=== PATIENT | female | born 1970 | race Caucasian/White ===

== ENCOUNTER → 2017-05-07 | Outpatient (CLI) | payer BC | END | disposition home or self-care (01) | LOC: CFH 11:10 | PROVIDERS: ATTEND Nurse Practitioner Family | DX: N64.4 Mastodynia (principal) | CPT/HCPCS: 76641; G0204 ==

== ENCOUNTER → 2017-06-18 | Outpatient (CLI) | payer MEDICAID ==
[~2017-06-18] MED LIST: LIDOCAINE 1%, 20ML ONE
== END ==
LOC: CFH 07:35
PROVIDERS: ATTEND Nurse Practitioner Family
DX: R92.1 Mammographic calcification found on diagnostic imaging of breast (principal); R92.8 Other abnormal and inconclusive findings on diagnostic imaging of breast; Z98.890 Other specified postprocedural states
CPT/HCPCS: 19081; 77065; 88305; J3490

== ENCOUNTER → 2018-03-11 | Outpatient (CLI) | payer MEDICAID, OTHER | END | disposition home or self-care (01) | LOC: CVU 06:45 → EDSTATUS 07:00 | PROVIDERS: ATTEND Internal Medicine Cardiovascular Disease | DX: I07.1 Rheumatic tricuspid insufficiency (principal); Z87.891 Personal history of nicotine dependence | CPT/HCPCS: 93306 ==

== ENCOUNTER 2018-07-01 12:46 | Outpatient (CLI) | payer OTHER | END 2018-07-01 23:59 | disposition home or self-care (01) | LOC: CFH 12:46 | PROVIDERS: ATTEND Nurse Practitioner Family | DX: N60.02 Solitary cyst of left breast (principal); N63.21 Unspecified lump in the left breast, upper outer quadrant; Z80.3 Family history of malignant neoplasm of breast | CPT/HCPCS: 76641; 77066; G0279; 97597 ==